=== PATIENT | female | born 1980 | race Two or more races ===

== ENCOUNTER 2021-05-22 12:42 | Outpatient (REF) | payer OTHER, SELFPAY ==
[2021-05-22 14:03] LABS: Hematocrit 42.9 % (37.0-47.0); Hemoglobin 13.8 g/dl (12.0-16.0); Mean Corpuscular HGB Conc 32.2 g/dl (31.0-35.0); Mean Corpuscular Hemoglobin 27.8 pg (27.0-33.0); Mean Corpuscular Volume 86.5 fL (80.0-98.0); Mean Platelet Volume 10.4 fL (9.4-12.3); Platelet Count 304 X10*3/uL (160-400); Red Blood Count 4.96 X10*6/uL (4.20-5.50); Red Cell Distribution Width 12.6 % (11.0-16.0); White Blood Count 7.5 X10*3/uL (4.8-10.8)
[2021-05-22 14:10] LABS: Estimated Average Glucose 174 mg/dL; Hemoglobin A1c % 7.7 %
[2021-05-22 14:40] LABS: Alanine Aminotransferase 37 U/L (0-31); Albumin Level 3.9 g/dL (3.5-5.0); Alkaline Phosphatase 120 U/L (39-117); Anion Gap 13 (12-20); Aspartate Amino Transferase 49 U/L (5-31); Bilirubin Total 0.4 mg/dL (0.0-1.0); Blood Urea Nitrogen 8 mg/dL (9-16); Calcium 9.9 mg/dL (8.4-10.2); Carbon Dioxide 23 mmol/L (22-29); Chloride 105 mmol/L (96-108); Cholesterol 173 mg/dL; Estimated Glomerular Filt Rate > 60; Glucose Fasting 160 mg/dL (60-99); HDL Cholesterol 35 mg/dL; LDL Cholesterol Calculated 90 mg/dl; Potassium 4.1 mmol/L (3.3-5.1); Sodium 137 mmol/L (135-145); Total Protein 7.9 g/dL (6.5-8.0); Triglycerides 242 mg/dL
[2021-05-22 14:50] LABS: TSH reflex Free T4 1.66 uIU/mL (0.32-4.0)
[2021-05-22 15:02] LABS: Creatinine Urine 98.01 mg/dL; Microalbum/Creatinine Ratio Ur 5.1 ug/mg cr
[2021-05-22 15:07] LABS: Vitamin B12 514 pg/mL (200-900)
== END 2021-05-22 12:43 | disposition home or self-care (01) ==
LOC: HO.WFDLDS 12:42
PROVIDERS: Absent Provider Internal Medicine Endocrinology, Diabetes & Metabolism; Visit Provider Hospitalist
DX: Z00.00 Encounter for general adult medical examination without abnormal findings (principal); E10.9 Type 1 diabetes mellitus without complications
CPT/HCPCS: 36415; 80053; 80061; 82043; 82607; 83036; 84443; 85027

== ENCOUNTER 2022-06-24 08:49 | Outpatient (REF) | payer OTHER, SELFPAY ==
[2022-06-24 11:49] LABS: Hematocrit 39.1 % (37.0-47.0); Hemoglobin 12.4 g/dl (12.0-16.0); Mean Corpuscular HGB Conc 31.7 g/dl (31.0-35.0); Mean Corpuscular Hemoglobin 27.6 pg (27.0-33.0); Mean Corpuscular Volume 87.1 fL (80.0-98.0); Mean Platelet Volume 10.9 fL (9.4-12.3); Platelet Count 264 X10*3/uL (160-400); Red Blood Count 4.49 X10*6/uL (4.20-5.50); Red Cell Distribution Width 13.2 % (11.0-16.0); White Blood Count 7.6 X10*3/uL (4.8-10.8)
[2022-06-24 12:35] LABS: Alanine Aminotransferase 44 U/L (0-31); Albumin Level 3.5 g/dL (3.5-5.0); Alkaline Phosphatase 142 U/L (39-117); Anion Gap 12 (12-20); Aspartate Amino Transferase 56 U/L (5-31); Bilirubin Total 0.4 mg/dL (0.0-1.0); Blood Urea Nitrogen 9 mg/dL (9-16); Calcium 9.1 mg/dL (8.4-10.2); Carbon Dioxide 25 mmol/L (22-29); Chloride 104 mmol/L (96-108); Cholesterol 158 mg/dL; Estimated Glomerular Filt Rate > 60; Glucose Fasting 239 mg/dL (60-99); HDL Cholesterol 31 mg/dL; LDL Cholesterol Calculated 81 mg/dl; Potassium 4.3 mmol/L (3.3-5.1); Sodium 137 mmol/L (135-145); TSH reflex Free T4 7.13 uIU/mL (0.32-4.0); Total Protein 7.5 g/dL (6.5-8.0); Triglycerides 233 mg/dL
[2022-06-24 14:14] LABS: Free T4 (Free Thyroxine) 1.09 ng/dL (0.71-1.85)
== END 2022-06-24 08:50 | disposition home or self-care (01) ==
LOC: HO.WFDLDS 08:49
PROVIDERS: Absent Provider Internal Medicine Endocrinology, Diabetes & Metabolism; Visit Provider Hospitalist
DX: Z00.00 Encounter for general adult medical examination without abnormal findings (principal)
CPT/HCPCS: 36415; 80053; 80061; 84439; 84443; 85027

== ENCOUNTER 2023-09-08 09:47 | Outpatient (AMB) | payer OTHER, SELFPAY ==
--- NOTE | 2023-09-08 09:52 | A.OFFPC_ITS ---
Vital Signs 09/08/23 09:55 Height 5 ft 1 in Weight 124 lb BMI 23.4 BP 100/64 Blood Pressure Location Lt brachial Position Sitting Pulse 94 Pulse Source Pulse Oximeter Pulse Oximetry (%) 98 Oxygen Delivery Method Room Air Intake Visit Reasons: Transfer of Care Dr. Torre / [place] Intake Note: Pt is here today transfer [facility] to [facility]/: Pt never had a mammogram: Pt has DM which is being monitored by Dr. Serra last A1C 07/24/23 8.7: Last papsmear 11/2022 Allergies sumatriptan Adverse Reaction (Verified 09/08/23 10:53) flushing feeling Medication List - Last Reconciled 09/08/23 by Cammie Youngblood MD atorvastatin 20 mg PO DAILY biotin 10,000 mcg PO DAILY cholecalciferol (vitamin D3) 25 mcg PO DAILY desog-e.estradiol/e.estradiol 0.15-0.02 mgx21 /0.01 mg x 5 (Kariva (28)) 1 tab PO DAILY fluticasone propionate 50 mcg/actuation 2 sprays intranasal ONCE 1 month FreeStyle Santiago 14 Day Sensor (flash glucose sensor) As directed NS insulin glargine (Lantus Solostar U-100 Insulin) 60 units subcut BEDTIME insulin lispro (Humalog KwikPen (U-100) Insulin) 1 sliding scale dose subcut .before meals lancets (FreeStyle Lancets) As directed loratadine (Claritin) 10 mg PO DAILY losartan 25 mg PO DAILY metformin ER 500 mg PO BID pantoprazole 40 mg PO DAILY pen needle, diabetic (BD Delisa 2nd Gen Pen Needle) As directed propranolol ER 80 mg PO DAILY Tobacco use date assessed: 09/08/23 Dental Screening Dental Screen Date: 09/08/[address] Torre / [place] HPI Details 43-year-old lady new to [place], here to [facility] with new PCP, and for physical exam. She has uncontrolled diabetes mellitus, currently on Lantus, sliding scale of Humalog and metformin, currently followed by Dr. Hussein. Her last hemoglobin A1c on 07/24/2023 was 8.7. Has an appointment for follow-up with her next month. She is up-to-date with her diabetes retinopathy screening, sees Dr. Montgomery yearly.. Has never had a pneumonia vaccine or Tdap. She has hyperlipidemia currently on atorvastatin, and has history of migraine headaches, currently on prophylactic dose of propranolol ER at 80 mg daily She is up-to-date with her cervical cancer screening, done last year. [facility] Medical History Mixed dyslipidemia Diabetes mellitus with hyperglycemia, without long-term current use of insulin Surgical History No pertinent past surgical history Family History Mother No problems noted. Father Substance use disorder Social History Housing: Apartment Alcohol intake: current Alcohol intake frequency: holidays/special occasions only Patient Tobacco Use Status: Never used Tobacco e-Cigarette/Vaping Use: Never Used Second Hand Smoke Exposure: No service: No Current occupational status: unemployed Cognitive needs: No Hearing needs: No Vision needs: Yes (Glasses) Questionnaire PHQ-9 Over the last 2 weeks, how often have you been bothered by any of the following problems? 1. Little interest or pleasure in doing things: not at all 2. Feeling down, depressed, or hopeless: not at all 3. Trouble falling or staying asleep, or sleeping too much: more than half the days 4. Feeling tired or having little energy: several days 5. Poor appetite or overeating: not at all 6. Feeling bad about yourself - or that you are a failure or have let yourself or your family down: not at all 7. Trouble concentrating on things, such as reading the newspaper or watching television: not at all 8. Moving or speaking so slowly that other people could have noticed. Or the opposite - being so fidgety or restless that you have been moving around a lot more than usual: not at all 9. Thoughts that you would be better off or of hurting yourself in some way: not at all Total score: 3 Depression Screening Interpretation: Negative Depression Screening Done: Yes 92817 - PHQ-9 Billing: Yes Source: Developed by Drs. Rey Baires, Agata Rosario, Shahbaz Hernandez and colleagues, with an educational jasmina from [employer]. Thrive Questionnaire Date Thrive assessed: 09/08/23 I am a: Patient What is your living situation today?: I have a steady place to live Within the past 12 months, did the food you bought not last and you didn't have the money to get more?: Never true Within the past 12 months, did you worry whether your food would run out before you got money to buy more?: Never true Do you have trouble paying for medicines?: No Do you have trouble getting transportation to medical appointments?: No Do you have trouble paying your heating and electricity bill?: No Do you have trouble taking care of your child, family member or friend?: No Do you have trouble with day-to-day activities such as bathing, preparing meals, shopping, managing finances, etc.?: No Are you currently unemployed and looking for a job?: No Are you interested in more education?: No THRIVE Score: 0 AUDIT C Alcohol Use Questionnaire (AUDIT-C) 1. How often do you have a drink containing alcohol?: Monthly or less 2. How many drinks containing alcohol do you have on a typical day when you are drinking?: 1 or 2 3. How often do you have six or more drinks on one occasion?: Never Total Score: 1 TITO-7 AMB Questionnaire TITO-7 Date TITO - 7 assessed: 09/08/23 Feeling nervous, anxious, or on edge: 0 = Not at all Not being able to stop or control worryin = Not at all Worrying too much about different things: 0 = Not at all Trouble relaxin = Not at all Being so restless that it is hard to sit still: 0 = Not at all Becoming easily annoyed or irritable: 0 = Not at all Feeling afraid as if something awful might happen: 0 = Not at all Total TITO-7 score (0-4 normal; 5-9 mild; 10-14 moderate; 15-21 severe): 0 Source: Developed by Drs. Rey Baires, Agata Rosario, Shahbaz Hernandez and colleagues, with an educational jasmina from [employer]. TITO-7 Assessment Billing TITO-7 Assessment Tool: ITTO-7 Assessment 61210 Review of Systems Const Reports no additional complaints Eyes Details: sees Dr Montgomery, uses corrective lenses ENT Reports no additional complaints Card Reports no additional complaints Resp Reports no additional complaints GI Reports no additional complaints Reports no additional complaints and Denies nipple discharge Musc Reports no additional complaints Skin/Breast Denies breast pain, Denies breast mass, Denies nipple discharge and Denies rash Neuro Reports no additional complaints Psych Reports no additional complaints Endo Reports no additional complaints Silvio/Lymph Reports no additional complaints Aller/Immun Reports seasonal rhinorrhea Physical exam (Primary Care) Vital Signs: Last Vital Signs Pulse 94 09/08/23 09:55 BP 100/64 09/08/23 09:55 Pulse Ox 98 09/08/23 09:55 Oxygen Delivery Method Room Air 09/08/23 09:55 BMI result Body Mass Index 23.4 Tobacco/Smoking Status: Tobacco use Status Tobacco use date assessed 09/08/23 09/08/23 09:55 Patient Tobacco Use Status Never used Tobacco 09/08/23 09:55 e-Cigarette/Vaping Use Never Used 09/08/23 09:55 PHQ-9: PHQ-9 Score PHQ-9: Total score 3 09/08/23 23:54 Depression Screening Interpretation: Negative Thrive Assessment: Date of Thrive Assessment Date Thrive assessed 09/08/23 09/08/23 10:48 Const General: no acute distress and alert Nutritional Appearance: not obese Orientation/consciousness: patient oriented x3 HENMT Head: Yes normocephalic and Yes atraumatic Ears: external ears normal, TM's normal bilaterally and EAC's normal General nose exam: Normal external nose present and No nasal discharge present Face and sinus: Yes face symmetric Mouth: Normal oral and palatal mucosa present, lip normal, tongue normal, oropharynx normal and moist mucous membranes Eyes General: appearance normal, both eyes and all related structures Eyelids: Yes eyelids normal Conjunctivae: conjunctivae normal Sclerae: sclerae normal Pupils: Equal, round and reactive pupils present EOM: EOMs intact bilaterally Neck Neck: Yes full ROM, Yes no lymphadenopathy and Yes supple Thyroid: Thyroid normal Resp Effort & Inspection: normal respiratory effort and able to speak in complete sentences Auscultation: clear to auscultation bilaterally Cardio Rate: regular rate Rhythm: regular rhythm Heart sounds: S1 normal heart sound present and S2 normal heart sound present GI Palpation (GI): Soft to palpation, nontender, no guarding and no masses Auscultation: normal bowel sounds General: Yes no CVA tenderness Back/Spine/Pelvis Back: no CVA tenderness and No back tenderness Skin General skin exam: no rashes or lesions noted Neuro General: patient oriented x3, gait normal, moves all extremities, Normal light touch and pain sensation, no focal motor deficits and CN's II-XI intact bila terally Cranial nerves: Yes Equal, round and reactive pupils present Cognition (Neuro): normal cognition Gait exam (Neuro): Normal gait present Motor exam (neuro): 5/5 motor strength present throughout Extrem General: Yes normal to inspection, Yes full ROM, Yes no joint enlargement, Yes no pedal edema and Yes normal gait Psych Appearance: grossly normal and well kempt Mental Status: mental status grossly normal Speech and movement: Normal speech and movement present Affect: normal affect Attitude: cooperative Thought process: Normal thought process present Thought content: Normal thought content present Insight: Good insight present (Psych) Judgement: Good judgement present (Psych) Immunizations pneumoc 20-fredis conj-dip cr(PF) 0.5 mL IM syringe Performing Provider: Cammie Youngblood MD Performing Location: [facility] Administered by: Odilia Brennan CMA on 09/08/23 11:19 Dose Route Admin Location Dispensed Lot Number Expiration Date NDC Brand Representative 0.5 mL IM Left Deltoid 0.5 mL [id number] 08/09/24 1029-4920-96 [employer]WIN[employer]PFIZER VIS Given Date VIS Provided VIS Publication Date 09/08/23 Single Vaccine 21 Eligibility Eligibility Date Funding Source Not [facility] Eligible 09/08/23 Private Assessment and Plan Assessment & Plan (1) Annual visit for general adult medical examination with abnormal findings: Code(s): Z00.01 - Encounter for general adult medical examination with abnormal findings Plan: Will check appropriate labs. Continue regular dental visit every 6 months and regular eye exams, sees Dr. Montgomery yearly. Take adequate calcium in diet and vitamin-D 3 at 2000 IU per cap once a day, in addition to weight-bearing exercises to help maintain good muscle tone and weight control. Instructed to do self-breast exam, and recommended to get yearly mammogram, patient states that she will just get it ordered by her OBGYN at [facility]. She is up-to-date with her cervical cancer screening, sees Dr. Guzman, and had a cervical cancer screening done 11/25/2022 with negative findings. Has had COVID vaccine but does not want to get the booster, gets yearly flu shot, has not yet had her Tdap or her pneumococcal vaccine, latter given today (2) Migraine headache with aura: Code(s): G43.109 - Migraine with aura, not intractable, without status migrainosus Plan: Will check CBC, TSH vitamin-D comprehensive metabolic panel, the meantime continue with propranolol ER 80 mg daily for migraine prophylaxis (3) HTN (hypertension): Code(s): I10 - Essential (primary) hypertension Plan: Blood pressure at goal of less than 130/80. Continue losartan 25 mg daily Reinforced importance of following a low sodium diet, getting regular exercise, and lowering stress levels. (4) Elevated TSH: Code(s): R79.89 - Other specified abnormal findings of blood chemistry Plan: SH , free T4 and thyroid peroxidase antibody ordered (5) Elevated liver enzymes: Code(s): R74.8 - Abnormal levels of other serum enzymes Plan: Compressive metabolic panel ordered (6) Diabetes mellitus with hyperglycemia, without long-term current use of insulin: Code(s): E11.65 - Type 2 diabetes mellitus with hyperglycemia Plan: Patient currently being followed by Dr. Hussein, last hemoglobin A1c was 8.7 done 07/24/2023, sees her every 3 months. Urine ordered for microalbuminuria screening. Patient sees Dr. Montgomery for her yearly diabetes retinopathy screening. Prevnar 20 given today, reminded to get yearly flu shot, and Tdap (7) Need for pneumococcal 20-valent conjugate vaccination: Code(s): Z23 - Encounter for immunization Plan: Prevnar 20 given to (8) Seasonal allergies: Code(s): J30.2 - Other seasonal allergic rhinitis Plan: Currently on loratadine 10 mg daily as needed for nasal congestion runny nose (9) Mixed dyslipidemia: Code(s): E78.2 - Mixed hyperlipidemia Plan: Currently taking atorvastatin 20 mg daily, ordered repeat fasting lipid panel Orders: Orders Comprehensive [place]. Panel Fast Today E11.65 - Type 2 diabetes mellitus with hyperglycemia, E78.2 - Mixed hyperlipidemia, G43.109 - Migraine with aura, not intractable, without status migrainosus, I10 - Essential (primary) hypertension, R74.8 - Abnormal levels of other serum enzymes, R79.89 - Other specified abnormal findings of blood chemistry Microalbumin, Random (w Creat) Today E11.65 - Type 2 diabetes mellitus with hyperglycemia, E78.2 - Mixed hyperlipidemia, G43.109 - Migraine with aura, not intractable, without status migrainosus, I10 - Essential (primary) hypertension, R74.8 - Abnormal levels of other serum enzymes, R79.89 - Other specified abnormal findings of blood chemistry Thyroid Peroxidase Antibodies Today E11.65 - Type 2 diabetes mellitus with hyperglycemia, E78.2 - Mixed hyperlipidemia, G43.109 - Migraine with aura, not intractable, without status migrainosus, I10 - Essential (primary) hypertension, R74.8 - Abnormal levels of other serum enzymes, R79.89 - Other specified abnormal findings of blood chemistry Complete Blood Count Auto Diff Today E11.65 - Type 2 diabetes mellitus with hyperglycemia, E78.2 - Mixed hyperlipidemia, G43.109 - Migraine with aura, not intractable, without status migrainosus, I10 - Essential (primary) hypertension, R74.8 - Abnormal levels of other serum enzymes, R79.89 - Other specified abnormal findings of blood chemistry Lipid Panel Today E11.65 - Type 2 diabetes mellitus with hyperglycemia, E78.2 - Mixed hyperlipidemia, G43.109 - Migraine with aura, not intractable, without status migrainosus, I10 - Essential (primary) hypertension, R74.8 - Abnormal levels of other serum enzymes, R79.89 - Other specified abnormal findings of blood chemistry Thyroid Stimulating Hormone Today E11.65 - Type 2 diabetes mellitus with hyperglycemia, E78.2 - Mixed hyperlipidemia, G43.109 - Migraine with aura, not intractable, without status migrainosus, I10 - Essential (primary) hypertension, R74.8 - Abnormal levels of other serum enzymes, R79.89 - Other specified abnormal findings of blood chemistry Free T4 (Free Thyroxine) Today E11.65 - Type 2 diabetes mellitus with hyperglycemia, E78.2 - Mixed hyperlipidemia, G43.109 - Migraine with aura, not intractable, without status migrainosus, I10 - Essential (primary) hypertension, R74.8 - Abnormal levels of other serum enzymes, R79.89 - Other specified abnormal findings of blood chemistry Vitamin D 25-OH Total Today E11.65 - Type 2 diabetes mellitus with hyperglycemia, E78.2 - Mixed hyperlipidemia, G43.109 - Migraine with aura, not intractable, without status migrainosus, I10 - Essential (primary) hypertension, R74.8 - Abnormal levels of other serum enzymes, R79.89 - Other specified abnormal findings of blood chemistry Pneumococcal 20 Immunization Today Z23 - Encounter for immunization Coding Level of Care Code Est Pt Prev Care 40-64y(22163) Diagnoses Annual visit for general adult medical examination with abnormal findings Z00.01 Migraine headache with aura G43.109 HTN (hypertension) I10 Elevated TSH R79.89 Elevated liver enzymes R74.8 Diabetes mellitus with hyperglycemia, without long-term current use of insulin E11.65 Need for pneumococcal 20-valent conjugate vaccination Z23 Seasonal allergies J30.2 Mixed dyslipidemia E78.2 Additional Codes TITO-7 Assessment Billing - TITO-7 Assessment Tool: TITO-7 Assessment 80157 ([id number])
[2023-09-08 09:55] VITALS: BP 100/64; PULSE 94; O2SAT 98; BMI 23.4
== END 2023-09-08 11:25 | disposition home or self-care (01) ==
PROVIDERS: PCP Hospitalist; Visit Provider Internal Medicine
DX: Z00.00 Encounter for general adult medical examination without abnormal findings (principal); G43.109 Migraine with aura, not intractable, without status migrainosus; I10 Essential (primary) hypertension; E11.65 Type 2 diabetes mellitus with hyperglycemia; R79.89 Other specified abnormal findings of blood chemistry; R74.8 Abnormal levels of other serum enzymes; Z23 Encounter for immunization; J30.2 Other seasonal allergic rhinitis; E78.2 Mixed hyperlipidemia
CPT/HCPCS: 90471; 90677; 99396

== ENCOUNTER 2023-09-10 09:09 | Outpatient (REF) | payer OTHER, SELFPAY ==
[2023-09-10 10:27] LABS: MANUAL DIFF FLAG NO
[2023-09-10 10:46] LABS: Hematocrit 38.6 % (37.0-47.0); Hemoglobin 12.2 g/dl (12.0-16.0); Lymphocytes Percent Auto 45.2 % (20-40); Mean Corpuscular HGB Conc 31.6 g/dl (31.0-35.0); Mean Corpuscular Hemoglobin 26.8 pg (27.0-33.0); Mean Corpuscular Volume 84.6 fL (80.0-98.0); Mean Platelet Volume 10.7 fL (9.4-12.3); Monocytes Percent Auto 6.1 % (2-11); Platelet Count 260 X10*3/uL (160-400); Red Blood Count 4.56 X10*6/uL (4.20-5.50); Red Cell Distribution Width 13.7 % (11.0-16.0); White Blood Count 7.7 X10*3/uL (4.8-10.8)
[2023-09-10 11:32] LABS: Alanine Aminotransferase 27 U/L (0-31); Albumin Level 3.5 g/dL (3.5-5.0); Alkaline Phosphatase 127 U/L (39-117); Anion Gap 14 (12-20); Aspartate Amino Transferase 33 U/L (5-31); Bilirubin Total 0.3 mg/dL (0.0-1.0); Blood Urea Nitrogen 8 mg/dL (9-16); Calcium 9.2 mg/dL (8.4-10.2); Carbon Dioxide 21 mmol/L (22-29); Cholesterol 137 mg/dL (<200); Estimated Glomerular Filt Rate > 60; Glucose Fasting 218 mg/dL (60-99); HDL Cholesterol 31 mg/dL (>40); LDL Cholesterol Calculated 56 mg/dL (<100); Total Protein 8.3 g/dL (6.5-8.0); Triglycerides 250 mg/dL (<150)
[2023-09-10 11:42] LABS: Free T4 (Free Thyroxine) 0.94 ng/dL (0.71-1.85)
[2023-09-16 05:59] LABS: Thyroid Peroxidase Antibodies 1 IU/mL (<9)
== END 2023-09-10 09:10 | disposition home or self-care (01) ==
LOC: HO.HMGCLDS 09:09
PROVIDERS: PCP Internal Medicine; Visit Provider Internal Medicine
DX: R74.8 Abnormal levels of other serum enzymes (principal); R79.89 Other specified abnormal findings of blood chemistry; E11.65 Type 2 diabetes mellitus with hyperglycemia; G43.109 Migraine with aura, not intractable, without status migrainosus; I10 Essential (primary) hypertension; E78.2 Mixed hyperlipidemia
CPT/HCPCS: 36415; 80053; 80061; 82043; 82306; 82570; 84439; 84443; 85025; 86376

== ENCOUNTER 2024-04-19 09:01 | Outpatient (REF) | payer OTHER, SELFPAY ==
[2024-04-19 10:50] LABS: Aspartate Amino Transferase 68 U/L (5-31); Cholesterol 137 mg/dL (<200); HDL Cholesterol 30 mg/dL (>40); LDL Cholesterol Calculated 46 mg/dL (<100); Triglycerides 308 mg/dL (<150)
[2024-04-19 11:18] LABS: Free T4 (Free Thyroxine) 1.02 ng/dL (0.71-1.85); Thyroid Stimulating Hormone 4.13 uIU/mL (0.32-4.0)
[2024-04-19 11:36] LABS: Alanine Aminotransferase 30 U/L (0-31)
[2024-04-20 13:07] LABS: Thyroid Peroxidase Antibodies 1 IU/mL (<9)
== END 2024-04-19 09:02 | disposition home or self-care (01) ==
LOC: HO.HMGCLDS 09:01
PROVIDERS: PCP Internal Medicine; Visit Provider Internal Medicine
DX: E78.2 Mixed hyperlipidemia (principal); R79.89 Other specified abnormal findings of blood chemistry
CPT/HCPCS: 36415; 80061; 84439; 84443; 84450; 84460; 86376

== ENCOUNTER 2024-04-21 12:40 | Outpatient (AMB) | payer OTHER, SELFPAY ==
--- NOTE | 2024-04-21 13:14 | A.OFFPC_ITS ---
Vital Signs 04/21/24 13:15 Height 5 ft 1 in Weight 126 lb BMI 23.8 BP 122/80 Blood Pressure Location Rt brachial Position Sitting Pulse 82 Pulse Source Pulse Oximeter Pulse Oximetry (%) 99 Oxygen Delivery Method Room Air Intake Visit Reasons: 6M F/U- NEEDS A1C kisha from 02/19 Intake Note: Pt is here today her her 6mo. f/u Pt has an appt with Ranjana next week Allergies sumatriptan Adverse Reaction (Verified 04/26/24 03:44) flushing feeling Medication List - Last Reconciled 04/26/24 by Cammie Youngblood MD amoxicillin-pot clavulanate 875-125 mg 1 tab PO Q12H 10 days atorvastatin 20 mg PO DAILY biotin 10,000 mcg PO DAILY cholecalciferol (vitamin D3) 25 mcg PO DAILY desog-e.estradiol/e.estradiol 0.15-0.02 mgx21 /0.01 mg x 5 (Kariva (28)) 1 tab PO DAILY FreeStyle Santiago 14 Day Sensor (flash glucose sensor) As directed NS insulin glargine (Lantus Solostar U-100 Insulin) 60 units subcut BEDTIME insulin lispro (Humalog KwikPen (U-100) Insulin) 1 sliding scale dose subcut .before meals lancets (FreeStyle Lancets) As directed loratadine (Claritin) 10 mg PO DAILY losartan 25 mg PO DAILY metformin ER 500 mg PO BID pantoprazole 40 mg PO DAILY pen needle, diabetic (BD Delisa 2nd Gen Pen Needle) As directed propranolol ER 80 mg PO BID 3 months zolmitriptan (Zomig) take 1 tab at onset of headache; if no relief may repeat 1 tab after at least 2 hrs; max = 4 tabs/24 hr PO Tobacco use date assessed: 04/21/24 Dental Screening Dental Screen Date: 04/21/24 Did you have a dental visit in the last 12 months?: Yes Did you have a dental problem in the last 6 months where you did not have access to dental care?: No Was dental information given to patient?: Patient has dentist HPI 6M F/U- NEEDS A1C kisha from 02/19 HPI Details - The patient is a 44-year-old female pr esenting with sinusitis. - Symptoms started approximately four we eks ago, before Thanksgi.- Reports significant nasal congestion with bloody mucus. Pain is localized to the sinus region and has been persistent. - Previously used a saline nasal spray w ith no improvement. - The patient also has Type 2 Diabetes Dorinda do, latest HbA1c was 8.9% in January. - Medication adjustments were made by en docrinologist. - Follow-up with field crew chief [facility] ed for Friday. - Urine tests have been normal with no s igns of nephropathy. - Hypercholesterolemia is present. - Total cholesterol levels have been sta ble, with LDL within goal - Triglycerides elevation noted, likely due to elevated glucose levels. - Currently on atorvastatin; fish oil kelley pplements discussed but not started. - Migraine continues to be a problem. - Currently taking propranolol but repor ts no significant reduction in migraine frequency. - History of failed trials with Topamax and sumatriptan due to adverse effects. - Neurology consult to be scheduled. - The patient experiences elevated TSH. - Thyroid hormone levels are within the normal range. - No current thyroid medication prescrib ed, and no symptoms suggestive of hypothyroidism. PENDING SALE TO [facility] Medical History Mixed dyslipidemia Diabetes mellitus with hyperglycemia, without long-term current use of insulin Surgical History No pertinent past surgical history Family History Mother No problems noted. Father Substance use disorder Social History Housing: Apartment Alcohol intake: current Alcohol intake frequency: holidays/special occasions only Patient Tobacco Use Status: Never used Tobacco e-Cigarette/Vaping Use: Never Used Second Hand Smoke Exposure: No service: No Current occupational status: unemployed Cognitive needs: No Hearing needs: No Vision needs: Yes (Glasses) Questionnaire PHQ-9 Over the last 2 weeks, how often have you been bothered by any of the following problems? 1. Little interest or pleasure in doing things: not at all 2. Feeling down, depressed, or hopeless: not at all 3. Trouble falling or staying asleep, or sleeping too much: several days 4. Feeling tired or having little energy: several days 5. Poor appetite or overeating: not at all 6. Feeling bad about yourself - or that you are a failure or have let yourself or your family down: not at all 7. Trouble concentrating on things, such as reading the newspaper or watching television: not at all 8. Moving or speaking so slowly that other people could have noticed. Or the opposite - being so fidgety or restless that you have been moving around a lot more than usual: not at all 9. Thoughts that you would be better off or of hurting yourself in some way: not at all Total score: 2 Depression Screening Interpretation: Negative Depression Screening Done: Yes Source: Developed by Drs. Rey Baires, Agata Rosario, Shahbaz Hernandez and colleagues, with an educational jasmina from [employer]. Thrive Questionnaire Date Thrive assessed: 09/08/23 I am a: Patient What is your living situation today?: I have a steady place to live Within the past 12 months, did the food you bought not last and you didn't have the money to get more?: Never true Within the past 12 months, did you worry whether your food would run out before you got money to buy more?: Never true Do you have trouble paying for medicines?: No Do you have trouble getting transportation to medical appointments?: No Do you have trouble paying your heating and electricity bill?: No Do you have trouble taking care of your child, family member or friend?: No Do you have trouble with day-to-day activities such as bathing, preparing meals, shopping, managing finances, etc.?: No Are you currently unemployed and looking for a job?: I choose not to answer this question Are you interested in more education?: No Please select the resources that you would like help with: None Currently or been in a relationship where the following occur: No concerns reported THRIVE Score: 0 AUDIT C Alcohol Use Questionnaire (AUDIT-C) 1. How often do you have a drink containing alcohol?: Never Total Score: 0 TITO-7 AMB Questionnaire TITO-7 Date TITO - 7 assessed: 09/08/23 Feeling nervous, anxious, or on edge: 0 = Not at all Not being able to stop or control worryin = Not at all Worrying too much about different things: 0 = Not at all Trouble relaxin = Not at all Being so restless that it is hard to sit still: 0 = Not at all Becoming easily annoyed or irritable: 0 = Not at all Feeling afraid as if something awful might happen: 0 = Not at all Total TITO-7 score (0-4 normal; 5-9 mild; 10-14 moderate; 15-21 severe): 0 Source: Developed by Drs. Rey Baires, Agata Rosario, Shahbaz Hernandez and colleagues, with an educational jasmina from [employer]. Review of Systems Const Reports no additional complaints Eyes Details: Dr Montgomery yearly ENT Reports no additional complaints Card Reports no additional complaints Resp Reports no additional complaints GI Reports no additional complaints Reports no additional complaints and Denies nipple discharge Musc Reports no additional complaints Skin/Breast Denies breast pain, Denies breast mass, Denies nipple discharge and Denies rash Neuro Reports no additional complaints Psych Reports no additional complaints Endo Reports no additional complaints Silvio/Lymph Reports no additional complaints Aller/Immun Reports seasonal rhinorrhea Physical exam (Primary Care) Vital Signs: Last Vital Signs Pulse 82 04/21/24 13:15 BP 122/80 04/21/24 13:15 Pulse Ox 99 04/21/24 13:15 Oxygen Delivery Method Room Air 04/21/24 13:15 BMI result Body Mass Index 23.8 Tobacco/Smoking Status: Tobacco use Status Tobacco use date assessed 04/21/24 04/21/24 13:32 Patient Tobacco Use Status Never used Tobacco 04/21/24 13:15 e-Cigarette/Vaping Use Never Used 04/21/24 13:15 PHQ-9: PHQ-9 Score PHQ-9: Total score 2 04/21/24 16:40 Depression Screening Interpretation: Negative Thrive Assessment: Date of Thrive Assessment Date Thrive assessed 09/08/23 04/21/24 13:15 Currently or been in a relationship where the following occur: No concerns reported Const General: no acute distress and alert Nutritional Appearance: not obese Orientation/consciousness: patient oriented x3 HENMT Head: Yes normocephalic and Yes atraumatic Ears: external ears normal, TM's normal bilaterally and EAC's normal General nose exam: Normal external nose present and No nasal discharge present Face and sinus: Yes face symmetric Mouth: Normal oral and palatal mucosa present, lip normal, tongue normal, oropharynx normal and moist mucous membranes Eyes General: appearance normal, both eyes and all related structures Eyelids: Yes eyelids normal Conjunctivae: conjunctivae normal Sclerae: sclerae normal Pupils: Equal, round and reactive pupils present EOM: EOMs intact bilaterally Neck Neck: Yes full ROM, Yes no lymphadenopathy and Yes supple Thyroid: Thyroid normal Resp Effort & Inspection: normal respiratory effort and able to speak in complete sentences Auscultation: clear to auscultation bilaterally Cardio Rate: regular rate Rhythm: regular rhythm Heart sounds: S1 normal heart sound present and S2 normal heart sound present GI Palpation (GI): Soft to palpation, nontender, no guarding and no masses Auscultation: normal bowel sounds General: Yes no CVA tenderness Back/Spine/Pelvis Back: no CVA tenderness and No back tenderness Skin General skin exam: no rashes or lesions noted Neuro General: patient oriented x3, gait normal, moves all extremities, Normal light touch and pain sensation, no focal motor deficits and CN's II-XI intact bilaterally Cranial nerves: Yes Equal, round and reactive pupils present Cognition (Neuro): normal cognition Gait exam (Neuro): Normal gait present Motor exam (neuro): 5/5 motor strength present throughout Extrem General: Yes normal to inspection, Yes full ROM, Yes no joint enlargement, Yes no pedal edema and Yes normal gait Psych Appearance: grossly normal and well kempt Mental Status: mental status grossly normal Speech and movement: Normal speech and movement present Affect: normal affect Attitude: cooperative Thought process: Normal thought process present Thought content: Normal thought content present Insight: Good insight present (Psych) Judgement: Good judgement present (Psych) Coding Level of Care Code Est Pt Level 4 (88563) Complex EM visit Add On G2211 Diagnoses Migraine headache with aura G43.109 Acute sinusitis J01.90 Mixed dyslipidemia E78.2 Diabetes mellitus with hyperglycemia, without long-term current use of insulin E11.65 HTN (hypertension) I10 Assessment & Plan Assessment & Plan (1) Migraine headache with aura: Code(s): G43.109 - Migraine with aura, not intractable, without status migrainosus Category: Medical Plan: Neurology consult obtained, unable to tolerate sumatriptan, will try on zolmitriptan to take as directed, no improvement with topiramate or propranolol ER 80 mg twice a day (2) Acute sinusitis: Code(s): J01.90 - Acute sinusitis, unspecified Category: Medical Plan: Prescription sent for Augmentin 875 mg to take 1 every 12 hours for 10 days. Be take loratadine for nasal congestion and runny nose (3) Mixed dyslipidemia: Code(s): E78.2 - Mixed hyperlipidemia Category: Medical Plan: Currently on atorvastatin 20 mg daily, advised to take [id number] fish oil supplements at least 2 capsules daily. Reinforced importance of following a low-cholesterol diet getting regular exercise. (4) Diabetes mellitus with hyperglycemia, without long-term current use of insulin: Code(s): E11.65 - Type 2 diabetes mellitus with hyperglycemia Category: Medical Plan: Followed by endocrine clinic currently on metformin ER 500 mg 1 tablet twice a day and on NovoLog sliding scale with meals and Lantus Solostar 60 units at bedtime (5) HTN (hypertension): Code(s): I10 - Essential (primary) hypertension Category: Medical Plan: Blood pressure at goal of less than 130/80. Continue with losartan 25 mg daily Reinforced importance of following a low sodium diet, getting regular exercise, and lowering stress levels. Orders: Orders Aspartate Amino Transferase 04/19/24 E78.2 - Mixed hyperlipidemia Alanine Aminotransferase 04/19/24 E78.2 - Mixed hyperlipidemia Thyroid Peroxidase Antibodies 04/19/24 R79.89 - Other specified abnormal findings of blood chemistry Thyroid Stimulating Hormone 04/19/24 R79.89 - Other specified abnormal findings of blood chemistry Lipid Panel 04/19/24 E78.2 - Mixed hyperlipidemia Free T4 (Free Thyroxine) 04/19/24 R79.89 - Other specified abnormal findings of blood chemistry Referrals Neurology Referral G43.109 - Migraine with aura, not intractable, without status migrainosus Medications: New amoxicillin-pot clavulanate 875-125 mg 1 tab PO Q12H 20 tabs 0RF 10 days J01.90 - Acute sinusitis, unspecified zolmitriptan (Zomig) take 1 tab at onset of headache; if no relief may repeat 1 tab after at least 2 hrs; max = 4 tabs/24 hr PO 10 tabs 0RF Refilled loratadine (Claritin) 10 mg PO DAILY 90 tabs 1RF E11.9 - Type 2 diabetes mellitus without complications, E78.00 - Pure hypercholesterolemia, unspecified, G43.109 - Migraine with aura, not intractable, without status migrainosus, I10 - Essential (primary) hypertension, J30.2 - Other seasonal allergic rhinitis
[2024-04-21 13:15] VITALS: BP 122/80; PULSE 82; O2SAT 99; BMI 23.8
== END 2024-04-21 14:15 | disposition home or self-care (01) ==
PROVIDERS: PCP Internal Medicine; Visit Provider Internal Medicine
DX: G43.109 Migraine with aura, not intractable, without status migrainosus (principal); J01.90 Acute sinusitis, unspecified; E78.2 Mixed hyperlipidemia; E11.65 Type 2 diabetes mellitus with hyperglycemia; I10 Essential (primary) hypertension

== ENCOUNTER → 2024-04-21 12:40 | Outpatient (BNVA) | payer OTHER, SELFPAY | PROVIDERS: PCP Internal Medicine; Visit Provider Internal Medicine | DX: G43.109 Migraine with aura, not intractable, without status migrainosus (principal); E78.2 Mixed hyperlipidemia; R79.89 Other specified abnormal findings of blood chemistry; J01.90 Acute sinusitis, unspecified; E11.65 Type 2 diabetes mellitus with hyperglycemia; I10 Essential (primary) hypertension | CPT/HCPCS: 96127; 99212 ==

== ENCOUNTER 2024-09-09 09:43 | Outpatient (AMB) | payer OTHER, SELFPAY ==
--- NOTE | 2024-09-09 09:50 | MHC.PC.OV ---
Vital Signs 09/09/24 09:53 Height 5 ft 1 in Weight 132 lb BMI 24.9 BP 100/60 Blood Pressure Location Lt brachial Position Sitting Respiration 16 Pulse 76 Pulse Source Pulse Oximeter Temp 98.1 F Temp Source Oral Pulse Oximetry (%) 96 Oxygen Delivery Method Room Air Intake Visit Reasons: PE Intake Note: Pt is here today for her PE: last papsmear 01/05/24 Allergies sumatriptan Adverse Reaction (Verified 09/09/24 09:58) flushing feeling Medication List - Last Reconciled 09/09/24 by Cammie Youngblood MD atorvastatin 20 mg PO DAILY biotin 10,000 mcg PO DAILY cholecalciferol (vitamin D3) 25 mcg PO DAILY desog-e.estradiol/e.estradiol 0.15-0.02 mgx21 /0.01 mg x 5 (Kariva (28)) 1 tab PO DAILY FreeStyle Santiago 14 Day Sensor (flash glucose sensor) As directed NS insulin lispro (Humalog KwikPen (U-100) Insulin) 1 sliding scale dose subcut .before meals lancets (FreeStyle Lancets) As directed loratadine (Claritin) 10 mg PO DAILY losartan 25 mg PO DAILY metformin ER 500 mg PO BID pantoprazole 40 mg PO DAILY pen needle, diabetic (BD Delisa 2nd Gen Pen Needle) As directed propranolol ER 80 mg PO BID 90 days zolmitriptan (Zomig) take 1 tab at onset of headache; if no relief may repeat 1 tab after at least 2 hrs; max = 4 tabs/24 hr PO Tobacco use date assessed: 09/09/24 Dental Screening Dental Screen Date: 04/21/24 Did you have a dental visit in the last 12 months?: Yes Did you have a dental problem in the last 6 months where you did not have access to dental care?: No Was dental information given to patient?: Patient has dentist HPI PE HPI Details 44-year-old lady with history of migraine headache currently followed by Dr. Wiggins . She states that she still gets frequent migraine headaches despite taking propranolol 80 mg twice a day and it has been masking her hypoglycemic events, and no relief when taking sumatriptan. It was recommended to try Emgality pen for prophylaxis but patient still hesitant about it, afraid of injections. She has type 2 diabetes mellitus, currently uncontrolled, recently started on an insulin pump added to her metformin, sees Dr. Hussein every 3 months She takes pantoprazole as once a day for heartburn. Patient indicates that she had a remote history of upper endoscopy, was told that she had some irritation in her gastric mucosa at that time. She is up-to-date with her cervical cancer screening, sees Dr. Guzman , up-to-date with her Pap smear. Never had a mammogram or colonoscopy done yet, does not want to do any colon cancer screening at present time. She is up-to-date with her flu shot, and pneumonia vaccine but does not want to get COVID booster and does not want to get Tdap at present. Complains of recurrent sinu infections witnessed congestion, postnasal drainage, and seasonal environmental allergies. Has been taking loratadine every day, tried Flonase in the past and saline nasal sprays and Neti pot all of which has not helped. Like a referral to ENT for further evaluation and management [facility] Medical History Recurrent sinus infections Mixed dyslipidemia Diabetes mellitus with hyperglycemia, without long-term current use of insulin Surgical History No pertinent past surgical history Family History Mother No problems noted. Father Substance use disorder Social History Housing: Apartment Alcohol intake: current Alcohol intake frequency: holidays/special occasions only Patient Tobacco Use Status: Never used Tobacco e-Cigarette/Vaping Use: Never Used Second Hand Smoke Exposure: No service: No Current occupational status: unemployed Cognitive needs: No Hearing needs: No Vision needs: Yes (Glasses) Questionnaire PHQ-9 Over the last 2 weeks, how often have you been bothered by any of the following problems? 1. Little interest or pleasure in doing things: not at all 2. Feeling down, depressed, or hopeless: not at all 3. Trouble falling or staying asleep, or sleeping too much: not at all 4. Feeling tired or having little energy: not at all 5. Poor appetite or overeating: not at all 6. Feeling bad about yourself - or that you are a failure or have let yourself or your family down: not at all 7. Trouble concentrating on things, such as reading the newspaper or watching television: not at all 8. Moving or speaking so slowly that other people could have noticed. Or the opposite - being so fidgety or restless that you have been moving around a lot more than usual: not at all 9. Thoughts that you would be better off or of hurting yourself in some way: not at all Total score: 0 Depression Screening Interpretation: Negative Depression Screening Done: Yes 32981 - PHQ-9 Billing: Yes Source: Developed by Drs. Rey Baires, Agata Rosario, Shahbaz Hernandez and colleagues, with an educational jasmina from [employer]. Thrive Questionnaire Date Thrive assessed: 09/03/24 I am a: Patient What is your living situation today?: I have a steady place to live Within the past 12 months, did the food you bought not last and you didn't have the money to get more?: Never true Within the past 12 months, did you worry whether your food would run out before you got money to buy more?: Never true Do you have trouble paying for medicines?: No Do you have trouble getting transportation to medical appointments?: No Do you have trouble paying your heating and electricity bill?: No Do you have trouble taking care of your child, family member or friend?: No Do you have trouble with day-to-day activities such as bathing, preparing meals, shopping, managing finances, etc.?: No Are you currently unemployed and looking for a job?: Yes Are you interested in more education?: I choose not to answer this question Please select the resources that you would like help with: None Currently or been in a relationship where the following occur: No concerns reported THRIVE Score: 0 AUDIT C Alcohol Use Questionnaire (AUDIT-C) 1. How often do you have a drink containing alcohol?: Monthly or less 2. How many drinks containing alcohol do you have on a typical day when you are drinking?: 1 or 2 3. How often do you have six or more drinks on one occasion?: Never Total Score: 1 TITO-7 AMB Questionnaire TITO-7 Date TITO - 7 assessed: 09/08/23 Feeling nervous, anxious, or on edge: 1 = Several days Not being able to stop or control worryin = Several days Worrying too much about different things: 0 = Not at all Trouble relaxin = Not at all Being so restless that it is hard to sit still: 0 = Not at all Becoming easily annoyed or irritable: 0 = Not at all Feeling afraid as if something awful might happen: 0 = Not at all Total TITO-7 score (0-4 normal; 5-9 mild; 10-14 moderate; 15-21 severe): 2 Source: Developed by Drs. Rey Baires, Agata Rosario, Shahbaz Hernandez and colleagues, with an educational jasmina from [employer]. TITO-7 Assessment Billing TITO-7 Assessment Tool: TITO-7 Assessment 17073 Review of Systems Const Reports no additional complaints Eyes Details: Dr Montgomery yearly ENT Reports as per HPI Card Reports no additional complaints Resp Reports no additional complaints GI Reports no additional complaints Reports no additional complaints and Denies nipple discharge Musc Reports no additional complaints Skin/Breast Denies breast pain, Denies breast mass, Denies nipple discharge and Denies rash Neuro Reports no additional complaints Psych Reports no additional complaints Endo Reports no additional complaints Silvio/Lymph Reports no additional complaints Aller/Immun Reports seasonal rhinorrhea Physical exam (Primary Care) Vital Signs: Last Vital Signs Temp 98.1 F 09/09/24 09:53 Pulse 76 09/09/24 09:53 Resp 16 09/09/24 09:53 BP 100/60 09/09/24 09:53 Pulse Ox 96 09/09/24 09:53 Oxygen Delivery Method Room Air 09/09/24 09:53 BMI result Body Mass Index 24.9 Tobacco/Smoking Status: Tobacco use Status Tobacco use date assessed 09/09/24 09/09/24 10:02 Patient Tobacco Use Status Never used Tobacco 09/09/24 10:02 e-Cigarette/Vaping Use Never Used 09/09/24 10:02 PHQ-9: PHQ-9 Score PHQ-9: Total score 0 09/09/24 10:14 Depression Screening Interpretation: Negative Thrive Assessment: Date of Thrive Assessment Date Thrive assessed 09/03/24 09/09/24 10:02 Currently or been in a relationship where the following occur: No concerns reported Advance Care Planning discussion: On file, no changes Date of discussion: 09/09/24 Who was present: Patient Forms completed: Health Care Proxy Time spent: 1-15 minutes, on File Actual minutes spent: 1 Const General: no acute distress and alert Orientation/consciousness: patient oriented x3 [facility] Head: Yes normocephalic Ears: external ears normal, TM's normal bilaterally and EAC's normal General nose exam: Normal external nose present and No nasal discharge present Face and sinus: Yes face symmetric Mouth: lip normal, tongue normal, oropharynx normal and moist mucous membranes Eyes General: appearance normal, both eyes and all related structures Eyelids: Yes eyelids normal Conjunctivae: conjunctivae normal Sclerae: sclerae normal Pupils: Equal, round and reactive pupils present EOM: EOMs intact bilaterally Neck Neck: Yes full ROM, Yes no lymphadenopathy and Yes supple Thyroid: Thyroid normal Resp Effort & Inspection: normal respiratory effort and able to speak in complete sentences Auscultation: clear to auscultation bilaterally Cardio Rate: regular rate Rhythm: regular rhythm Heart sounds: S1 normal heart sound present and S2 normal heart sound present GI Palpation (GI): Soft to palpation, nontender, no guarding and no masses Auscultation: normal bowel sounds General: Yes no CVA tenderness Back/Spine/Pelvis Back: no CVA tenderness and No back tenderness Skin General skin exam: no rashes or lesions noted Neuro General: patient oriented x3, gait normal, moves all extremities, Normal light touch and pain sensation, no focal motor deficits and CN's II-XI intact bilaterally Cranial nerves: Yes Equal, round and reactive pupils present Cognition (Neuro): normal cognition Gait exam (Neuro): Normal gait present Motor exam (neuro): 5/5 motor strength present throughout Extrem General: Yes normal to inspection, Yes full ROM, Yes no joint enlargement, Yes no pedal edema and Yes normal gait Psych Appearance: grossly normal and well kempt Mental Status: mental status grossly normal Speech and movement: Normal speech and movement present Affect: normal affect Attitude: cooperative Thought process: Normal thought process present Thought content: Normal thought content present Coding Level of Care Code Est Pt Prev Care 40-64y(56949) Diagnoses Annual visit for general adult medical examination with abnormal findings Z00.01 Migraine with aura and without status migrainosus, not intractable G43.109 Status migrainosus presence: without status migrainosus Intractability: not intractable HTN (hypertension) I10 Diabetes mellitus with hyperglycemia, without long-term current use of insulin E11.65 Mixed dyslipidemia E78.2 Seasonal allergies J30.2 Recurrent sinus infections J32.9 Additional Codes PHQ-9 - 87536 - PHQ-9 Billing: Yes ([id number]) TITO-7 Assessment Billing - TITO-7 Assessment Tool: TITO-7 Assessment 13013 ([id number]) Vital Signs *Quality* - Advance Care Planning discussion: On file, no changes ([id number]) Vital Signs *Quality* - Time spent: 1-15 minutes, on File ([id number]) Assessment & Plan Assessment & Plan (1) Annual visit for general adult medical examination with abnormal findings: Code(s): Z00.01 - Encounter for general adult medical examination with abnormal findings Plan: Will check appropriate labs. Continue dental visit every 6 months and yearly eye exams, sees Dr. Rivera. Take adequate calcium in diet and vitamin-D 3 at 2000 IU per cap once a day, in addition to weight-bearing exercises to help maintain good muscle tone and weight control. Instructed to do self-breast exam, and recommended to get yearly mammogram, ordered, patient wants to do it at [facility].. Does not want to do a colon cancer screening at present. Gave her patient pamphlet regarding Cologuard test. Up-to-date with her yearly flu shot, and pneumonia vaccine, does not want to get COVID booster and offered Tdap on this visit but patient declined. (2) Migraine headache with aura: Code(s): G43.109 - Migraine with aura, not intractable, without status migrainosus Category: Medical Qualifiers: Status migrainosus presence: without status migrainosus Intractability: not intractable Qualified Code(s): G43.109 - Migraine with aura, not intractable, without status migrainosus Plan: Currently followed by Neurology, will try doing prophylactic Emgality, patient states that she will contact Neurology office to start the medication (3) HTN (hypertension): Code(s): I10 - Essential (primary) hypertension Category: Medical Plan: Blood pressure at goal of less than 130/80. Continue losartan 25 mg daily Reinforced importance of following a low sodium diet, getting regular exercise, and lowering stress levels. (4) Diabetes mellitus with hyperglycemia, without long-term current use of insulin: Code(s): E11.65 - Type 2 diabetes mellitus with hyperglycemia Category: Medical Plan: Currently followed by Dr. Hussein, started on an insulin pump in addition to her metformin, latest hemoglobin A1c was at 9%, ordered a urine for microalbuminuria screening. Up-to-date with her yearly diabetes retinopathy screening, sees Dr. Montgomery (5) Mixed dyslipidemia: Code(s): E78.2 - Mixed hyperlipidemia Category: Medical Plan: Fasting lipid panel ordered (6) Seasonal allergies: Code(s): J30.2 - Other seasonal allergic rhinitis Category: Medical Plan: Referral to ENT for further evaluation ordered (7) Recurrent sinus infections: Code(s): J32.9 - Chronic sinusitis, unspecified Category: Medical Plan: ENT consult or Orders: Orders Lipid Panel Today E11.65 - Type 2 diabetes mellitus with hyperglycemia, E78.2 - Mixed hyperlipidemia, G43.109 - Migraine with aura, not intractable, without status migrainosus, I10 - Essential (primary) hypertension, R74.8 - Abnormal levels of other serum enzymes, R79.89 - Other specified abnormal findings of blood chemistry, Z00.01 - Encounter for general adult medical examination with abnormal findings Vitamin D 25-OH Total Today E11.65 - Type 2 diabetes mellitus with hyperglycemia, E78.2 - Mixed hyperlipidemia, G43.109 - Migraine with aura, not intractable, without status migrainosus, I10 - Essential (primary) hypertension, R74.8 - Abnormal levels of other serum enzymes, R79.89 - Other specified abnormal findings of blood chemistry, Z00.01 - Encounter for general adult medical examination with abnormal findings MM tomosynthesis screening BI Today Z12.31 - Encounter for screening mammogram for malignant neoplasm of breast Microalbumin, Random (w Creat) Today E11.65 - Type 2 diabetes mellitus with hyperglycemia Referrals Ear/Nose/Throat Referral J30.2 - Other seasonal allergic rhinitis, J32.9 - Chronic sinusitis, unspecified
[2024-09-09 09:53] VITALS: BP 100/60; PULSE 76; RESP 16; TEMP 36.7; O2SAT 96; BMI 24.9
== END 2024-09-09 10:28 | disposition home or self-care (01) ==
LOC: HO.HMCC 09:43
PROVIDERS: PCP Internal Medicine; Visit Provider Internal Medicine
DX: Z00.00 Encounter for general adult medical examination without abnormal findings (principal); E11.65 Type 2 diabetes mellitus with hyperglycemia; G43.109 Migraine with aura, not intractable, without status migrainosus; I10 Essential (primary) hypertension; E78.2 Mixed hyperlipidemia; J30.2 Other seasonal allergic rhinitis; J32.9 Chronic sinusitis, unspecified

== ENCOUNTER → 2024-09-09 09:43 | Outpatient (BNVA) | payer OTHER, SELFPAY | PROVIDERS: PCP Internal Medicine; Visit Provider Internal Medicine | DX: Z00.01 Encounter for general adult medical examination with abnormal findings (principal); G43.109 Migraine with aura, not intractable, without status migrainosus; I10 Essential (primary) hypertension; E78.2 Mixed hyperlipidemia; E11.65 Type 2 diabetes mellitus with hyperglycemia; J30.2 Other seasonal allergic rhinitis; J32.9 Chronic sinusitis, unspecified; Z96.41 Presence of insulin pump (external) (internal); Z79.4 Long term (current) use of insulin; Z79.84 Long term (current) use of oral hypoglycemic drugs | CPT/HCPCS: 96127; 99396 ==

== ENCOUNTER 2025-04-15 09:41 | Outpatient (REF) | payer OTHER, SELFPAY ==
[2025-04-15 13:23] LABS: Alanine Aminotransferase 20 U/L (0-31); Anion Gap 9 (12-20); Aspartate Amino Transferase 39 U/L (5-31); Blood Urea Nitrogen 7 mg/dL (9-16); Calcium 9.5 mg/dL (8.4-10.2); Carbon Dioxide 25 mmol/L (22-29); Chloride 108 mmol/L (96-108); Cholesterol 133 mg/dL (<200); Estimated Glomerular Filt Rate > 60; HDL Cholesterol 42 mg/dL (>40); Potassium 3.9 mmol/L (3.3-5.1); Sodium 138 mmol/L (135-145); Triglycerides 101 mg/dL (<150)
[2025-04-15 13:48] LABS: Vitamin B12 808 pg/mL (200-900)
== END 2025-04-15 09:42 | disposition home or self-care (01) ==
LOC: HO.HMGCLDS 09:41
PROVIDERS: Absent Provider Internal Medicine Endocrinology, Diabetes & Metabolism; PCP Internal Medicine; Visit Provider Internal Medicine
DX: Z00.01 Encounter for general adult medical examination with abnormal findings (principal); E11.65 Type 2 diabetes mellitus with hyperglycemia; E78.2 Mixed hyperlipidemia; G43.109 Migraine with aura, not intractable, without status migrainosus; I10 Essential (primary) hypertension; R74.8 Abnormal levels of other serum enzymes; R79.89 Other specified abnormal findings of blood chemistry; Z79.4 Long term (current) use of insulin
CPT/HCPCS: 36415; 80048; 80061; 82043; 82306; 82570; 82607; 83036; 84450; 84460